=== PATIENT | female | born 1965 | race Caucasian/White ===

== ENCOUNTER 2016-11-06 11:16 | Emergency (ER) | payer OTHER ==
[~2016-11-06] VITALS: Ht 154.9 cm; Wt 57.0 kg
[~2016-11-06 11:16] MED LIST: AMIT25TA9 PO; SIMV20TA6 PO
[2016-11-06 11:24] VITALS: BP 139/75
== END 2016-11-06 14:49 | disposition left against medical advice (07) ==
LOC: ER 11:16
DX: M79.641 Pain in right hand (principal); Z53.21 Procedure and treatment not carried out due to patient leaving prior to being seen by health care provider